=== PATIENT | female | born 1995 | race Caucasian/White ===

== ENCOUNTER 2020-07-01 12:21 | Emergency (ER) | payer BC ==
[~2020-07-01] VITALS: Ht 165.1 cm; Wt 67.5 kg
--- NOTE | 2020-07-01 13:09 | NUR ---
THIS IS A 25 YO F SENT FROM FOR DIZZINESS, NAUSEA, COUGH AND GENERAL ABDX1 WEEK. DENIES VOMITING, SYMPTOMS. PT REPORTS RECENT TEST FOR MONO, STREP AND COVID ARE NEGATIVE. PT RESTING ON Dynadec W/ CALL LIGHT IN REACH. CONNECTED TO MONITORING, VICKI ULLOA. AWAITING ED EVAL.
[2020-07-01] MEDS ORDERED: PROMETHAZINE 25 MG/ML, 1ML IM ONE (14:00)
[2020-07-01 14:03] LABS: BASOPHILS # (AUTO) 0.01 x10^3/uL (0-0.1); BASOPHILS % (AUTO) 0 % (0-1); EOSINOPHILS # (AUTO) 0.03 x10^3/uL (0-0.4); EOSINOPHILS % (AUTO) 0 % (1-7); LYMPHOCYTES # (AUTO) 1.94 x10^3/uL (1-3.4); LYMPHOCYTES % (AUTO) 27 % (22-44); MD NO; MEAN CORPUSCULAR HEMOGLOBIN 30.6 pg (27.0-34.8); MEAN CORPUSCULAR HGB CONC 33.5 g/dL (32.4-35.8); MEAN CORPUSCULAR VOLUME 91.4 fL (80-100); MEAN PLATELET VOLUME 9.4 fL (7.4-10.4); MONOCYTES # (AUTO) 0.54 x10^3/uL (0.2-0.8); MONOCYTES % (AUTO) 8 % (2-9); NEUTROPHILS # (AUTO) 4.71 x10^3/uL (1.8-6.8); NEUTROPHILS % (AUTO) 65 % (42-75); PLATELET COUNT 258 x10^3/uL (130-400); RED BLOOD COUNT 4.82 x10^6/uL (3.82-5.3); RED CELL DISTRIBUTION WIDTH 13.4 % (9.6-15.2)
[2020-07-01 14:13] LABS: ALBUMIN 3.9 g/dL (3.4-5.0); ANION GAP 7 mmol/L (5-15); CALCIUM 8.7 mg/dL (8.5-10.1); CHLORIDE 111 mmol/L (98-107); CREATININE 0.93 mg/dL (0.55-1.02)
[2020-07-01 14:27] VITALS: BP 115/69
--- NOTE | 2020-07-01 14:28 | NUR ---
TASK RN: PT AWAITING LAB RESULTS, NO DISTRESS
[2020-07-01] MEDS ORDERED: PROMETHAZINE 25 MG/ML, 1ML ONE (14:40)
--- NOTE | 2020-07-01 15:12 | NUR ---
Patient given discharge instructions and they have confirmed that they understand the instructions. Patient ambulatory with steady gait.
== END 2020-07-01 15:14 | disposition home or self-care (01) ==
LOC: ED 15:08
DX: H81.393 Other peripheral vertigo, bilateral (principal); H83.03 Labyrinthitis, bilateral; B34.9 Viral infection, unspecified; R05 Cough; R51 Headache; R50.9 Fever, unspecified; J45.909 Unspecified asthma, uncomplicated
CPT/HCPCS: 36415; 80048; 82040; 84703; 85025; 96372; 99283; J2550